=== PATIENT | female | born 2000 | race Caucasian/White ===

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

== ENCOUNTER 2018-02-17 09:24 | Emergency (ER) | payer OTHER ==
[~2018-02-17] VITALS: Ht 167.6 cm; Wt 81.6 kg
[2018-02-17 10:07] LABS: BASO % 0.2 % (0.0-1.0); EOS # 0.1 10*3/uL (0.0-0.4); EOS % 0.7 % (1.0-4.0); HEMATOCRIT 34.6 % (37.0-47.0); HEMOGLOBIN 10.6 g/dl (12.0-16.0); LYMPH % 7.6 % (27.0-41.0); MEAN CELL VOLUME 88.3 fl (81.0-99.0); MEAN CORPUSCULAR HGB CONC 30.6 g/dl (33.0-37.0); MEAN PLATELET VOLUME 10.2 fl (9.6-12.3); MONO # 0.7 10*3/uL (0.1-1.0); MONO % 5.7 % (3.0-9.0); NEUT # 10.9 10*3/uL (2.3-7.9); NEUT % 84.4 % (47.0-73.0); PLATELET COUNT AUTOMATED 285 10*3/uL (130-400); RED BLOOD COUNT 3.92 10*6/uL (4.10-5.10); RED CELL DISTRI WIDTH 14.2 % (0-14.5); WHITE BLOOD COUNT 12.9 10*3/uL (4.8-10.8)
[2018-02-17 10:21] LABS: ALBUMIN 2.4 gm/dl (3.1-4.5); ALKALINE PHOSPHATASE 146 U/L (45-117); BUN 11 mg/dl (7-24); CHLORIDE 107 mmol/L (98-107); CREATININE 0.67 mg/dL (0.55-1.02); POTASSIUM 3.7 mmol/L (3.5-5.1); SGOT/AST 8 IU/L (3-35); SGPT/ALT 11 U/L (12-78); SODIUM 140 mmol/L (136-145); TOTAL PROTEIN 7.3 gm/dL (6.4-8.2)
[2018-02-17 11:30] LABS: BILIRUBIN NEGATIVE (NEGATIVE); BLOOD 2+ (NEGATIVE); CLARITY CLEAR (CLEAR); COLOR YELLOW (YELLOW); GLUCOSE NEGATIVE (NEGATIVE); KETONE NEGATIVE (NEGATIVE); LEUKO ESTERASE TRACE (NEGATIVE); NITRITE NEGATIVE (NEGATIVE); SPECIFIC GRAVITY 1.025 (1.005-1.030); UROBILINOGEN 0.2 E.U./dl (0.2-1.0)
[2018-02-17 11:41] LABS: BACTERIA TRACE; MUCOUS 2+; WBC 41-50 wbc/hpf (0-5)
[2018-02-17] MEDS ORDERED: CEPHALEXIN500 M1 PO (11:56)
== END 2018-02-17 12:20 | disposition home or self-care (01) ==
LOC: ED 09:24
PROVIDERS: Nurse Practitioner Family
DX: O86.01 Infection of obstetric surgical wound, superficial incisional site (principal); L08.9 Local infection of the skin and subcutaneous tissue, unspecified

== ENCOUNTER → 2022-04-26 | Outpatient (CLI) | payer OTHER ==
[~2022-04-26] MED LIST changes: +AMOXICILLIN500 M2 PO; +CEPHALEXIN500 M1 PO
[2022-04-26 12:54] LABS: HEMATOCRIT 37.6 % (37.0-47.0); MEAN CORPUSCULAR HGB 19.9 pg (27.0-31.0); MEAN CORPUSCULAR HGB CONC 28.5 g/dl (33.0-37.0); RED BLOOD COUNT 5.37 10*6/uL (4.10-5.10); RED CELL DISTRI WIDTH 16.8 % (0-14.5); WHITE BLOOD COUNT 6.9 10*3/uL (4.8-10.8)
[2022-04-26 13:30] LABS: ALKALINE PHOSPHATASE 91 U/L (46-116); BUN 9 mg/dl (9-23); CHLORIDE 102 mmol/L (98-107); FREE T4 1.26 ng/dl (0.89-1.76); POTASSIUM 4.1 mmol/L (3.4-5.1); SGPT/ALT 12 U/L (10-49); THYROID STIM HORMONE (HS) 3.552 uIU/ml (0.550-4.780); TOTAL PROTEIN 7.5 gm/dL (6.0-8.0)
[2022-04-26 14:09] LABS: VITAMIN D, 25-HYDROXY 28.1 ng/mL (30-100)
== END | disposition home or self-care (01) ==
LOC: LAB 12:08
PROVIDERS: ATTEND Social Worker Clinical
DX: Z51.81 Encounter for therapeutic drug level monitoring (principal); Z79.899 Other long term (current) drug therapy